=== PATIENT | male | born 1955 | race Caucasian/White ===

== ENCOUNTER 2022-12-14 17:47 | Inpatient (IN) ==
[2022-12-14 18:24] LABS: ABS Lymphocytes 1.1 10^3/ul (1.0-4.8); ABS Monocytes 0.4 10^3/ul (0-0.8); ABS Neutrophils 3.8 10^3/ul (1.5-7.7); Eosinophil % 0.8 %; Hematocrit 55 % (42-52); Hemoglobin 18.7 g/dL (14.0-18.0); Lymphocyte % 20.2 %; Mean Corpuscular HGB Conc 34 g/dL (31-36); Mean Corpuscular Hemoglobin 31 pg (27-31); Mean Corpuscular Volume 92 fL (80-94); Nucleated Red Blood Cells % 0.1; Platelet Count 147 10^3/uL (150-450); Red Blood Count 5.97 10^6 /uL (4.18-5.48); Red Cell Distribution Width 16 % (10-15); White Blood Count 5.4 10^3/uL (3.5-10.8)
[2022-12-14 18:45] LABS: High Sens Troponin Baseline 5 pg/mL (<20)
[2022-12-14 18:45] LABS: Urine Appearance Clear; Urine Bilirubin Negative (Negative); Urine Blood 3+ (Negative); Urine Color Yellow; Urine Glucose Negative (Negative); Urine Ketones Negative (Negative); Urine Nitrite Negative (Negative); Urine Protein 3+(>=500 mg/dL) (Negative); Urine Specific Gravity 1.009 (1.002-1.030); Urine Urobilinogen Negative (Negative)
[2022-12-14 18:57] LABS: Urine Bacteria Absent (Absent); Urine Red Blood Cell 3+(>10/hpf) (Absent); Urine White Blood Cell Trace(0-5/hpf) (Absent)
[2022-12-14 18:59] LABS: ALT 21 U/L (7-52); AST 55 U/L (13-39); Albumin 4.5 g/dL (3.2-5.2); Albumin/Globulin Ratio 1.5 (1-3); Alkaline Phosphatase 48 U/L (35-149); Blood Urea Nitrogen 8 mg/dL (6-24); Calcium 9.8 mg/dL (8.6-10.3); Chloride 76 mmol/L (101-111); Globulin 3.1 g/dL (2-4); Glucose 83 mg/dL (70-100); Potassium 3.2 mmol/L (3.5-5.0); Sodium 121 mmol/L (135-145); Total Protein 7.6 g/dL (6.4-8.9); eGFR CKD-EPI 66.7 (>60)
[2022-12-14 19:20] LABS: Anion Gap 4 mmol/L (2-11); CO2 Carbon Dioxide 41 mmol/L (22-32)
[2022-12-14 20:10] LABS: High Sensitivity Troponin 1 Hr 6 pg/mL (<20)
[2022-12-14 21:46] LABS: PO2 Arterial 102 mmHg (80-100)
[2022-12-14] MEDS ORDERED: Iohexol 350 (CONTRAST) 500 ML MDV IV ONE (21:50)
[2022-12-14 21:51] LABS: PCO2 Arterial 78 mmHg (35-45)
[2022-12-14] MEDS ORDERED: Albuterol/Ipratropium NEB.SOL (2.5/0.5 MG) 3 ML NEB.SOLN INH ONE (21:52)
[2022-12-14] MEDS ORDERED: Furosemide 40 mg/4 ml IV VIAL IV SLOW PU ONE (21:52)
[2022-12-14 22:16] LABS: Free T4 < 0.25 ng/dL (0.61-1.12)
[2022-12-14 22:42] LABS: TSH Ultra Thyroid Stim Horm 77.12 mcIU/mL (0.34-5.60)
[2022-12-14] MEDS ORDERED: Levothyroxine 100 MCG/5 ML VIAL IV SCH ×2 (23:00)
[2022-12-14] MEDS ORDERED: Dexamethasone IV 4 MG/ML VIAL 1 ml VIAL IV SLOW PU ONE (23:01)
[2022-12-14] MEDS ORDERED: Thiamine IV 100 MG/ML VIAL (only for Bannana Bags !) IVPB SCH (23:45)
[2022-12-14] MEDS ORDERED: Zosyn per Pharmacy NOTE FOLLOW UP SCH (23:45)
[2022-12-14] MEDS ORDERED: Levothyroxine 100 MCG/5 ML VIAL IV ONE (23:45)
[2022-12-14] MEDS ORDERED: LORazepam 2 mg VIAL 1 ml IV PUSH SCH (23:45)
[2022-12-14] MEDS ORDERED: Piperacillin/Tazobac ADVAN 3.375 GM in NS 0.9% 100 ml BAG 100 ML IV ONE (23:47)
[2022-12-14] MEDS ORDERED: Albuterol/Ipratropium NEB.SOL (2.5/0.5 MG) 3 ML NEB.SOLN INH PRN (23:48)
[2022-12-15] MEDS ORDERED: Lorazepam PYXIS KEY PRN (00:18)
[2022-12-15] MEDS ORDERED: Thiamine 100 MG/ML 2 ml VIAL (200 mg) IV ONE (00:33)
[2022-12-15 01:15] LABS: PCO2 Arterial 90 mmHg (35-45); PO2 Arterial 111 mmHg (80-100)
[2022-12-15 01:38] LABS: Urine Osmo 244 mOsm/kg (150-1150)
[2022-12-15 02:00] LABS: Albumin 4.1 g/dL (3.2-5.2); Albumin/Globulin Ratio 1.6 (1-3); Creatinine, Serum 1.34 mg/dL (0.67-1.17); Globulin 2.6 g/dL (2-4); Potassium 3.1 mmol/L (3.5-5.0); Total Bilirubin 1.8 mg/dL (0.2-1.0); Total Protein 6.7 g/dL (6.4-8.9); eGFR CKD-EPI 58.4 (>60)
[2022-12-15] MEDS: KCL 20 MEQ/100 ML IVPREMIX 20 MEQ/100 ML BAG IV SCH ×2 (02:08→05:28)
[2022-12-15 02:28] LABS: PO2 Arterial 89 mmHg (80-100)
[2022-12-15 02:30] LABS: PCO2 Arterial 92 mmHg (35-45)
[2022-12-15] MEDS ORDERED: NS 0.9% 500 ml BAG 500 ML IV ONE (03:50)
[2022-12-15] MEDS ORDERED: Succinylcholine 200 mg VIAL 20 mg/ml 10 ml VIAL (200 mg) ONE (03:51)
[2022-12-15] MEDS ORDERED: Norepinephrine 16MCG/ML BAGD5W 4,000 MCG/250 ML BAG IV ONE (03:51)
[2022-12-15] MEDS ORDERED: Rocuronium 50 mg VIAL 10 mg/ml 5 ml VIAL (50 mg) ONE (03:51)
[2022-12-15] MEDS ORDERED: Propofol 10 mg/ml 100 ML BTL 1,000 MG/100 ML BTL ONE (03:52)
[2022-12-15] MEDS: Norepinephrine 16MCG/ML BAGD5W 4,000 MCG/250 ML BAG IV SCH ×3 (03:56→18:34)
[2022-12-15] MEDS ORDERED: Norepinephrine 16MCG/ML BAG NS 4,000 MCG/250 ML BAG IV SCH (04:00)
[2022-12-15] MEDS ORDERED: ZOSYN 3.375 GM Q8H per EXTENDED INFUSION IV SCH ×2 (04:00→07:30)
[2022-12-15] MEDS ORDERED: Norepinephrine 16MCG/ML BAGD5W 4,000 MCG/250 ML BAG IV SCH (04:00)
[2022-12-15] MEDS ORDERED: Propofol 10 mg/ml 100 ML BTL 1,000 MG/100 ML BTL IV SCH (04:00)
[2022-12-15 04:12] LABS: Albumin 3.5 g/dL (3.2-5.2); Albumin/Globulin Ratio 1.5 (1-3); Calcium 7.8 mg/dL (8.6-10.3); Creatinine, Serum 1.22 mg/dL (0.67-1.17); Globulin 2.3 g/dL (2-4); Total Bilirubin 1.5 mg/dL (0.2-1.0); Total Protein 5.8 g/dL (6.4-8.9); eGFR CKD-EPI 65.4 (>60)
[2022-12-15] MEDS ORDERED: Midazolam 50 MG PREMIX IV DRIP 50 ML IV SCH (04:15)
[2022-12-15] MEDS: Propofol 10 mg/ml 100 ML BTL 1,000 MG/100 ML BTL IV SCH ×4 (04:22→20:07)
[2022-12-15] MEDS ORDERED: Midazolam 2 mg/2 ml VIAL 1 mg/ml 2 ml VIAL (2 mg) IV SLOW PU ONE (04:32)
[2022-12-15] MEDS ORDERED: Midazolam 2 mg/2 ml VIAL 1 mg/ml 2 ml VIAL (2 mg) ONE ×2 (04:33→10:55)
[2022-12-15] MEDS: Hydrocortisone INJ 100 MG/2ML 2 ML VIAL IV SCH ×3 (05:30→21:41)
[2022-12-15] MEDS: Chlorhexidine MOUTHWASH 0.12% 15 ML UDC SWISH SPIT SCH ×5 (05:30→21:41)
[2022-12-15] MEDS: Heparin 5000 UNITS/ML 1 mL VIAL SUBCUT SCH ×3 (05:30→21:41)
[2022-12-15 05:55] LABS: PCO2 Arterial 44 mmHg (35-45); PO2 Arterial 74 mmHg (80-100)
[2022-12-15] MEDS ORDERED: Hydrocortisone INJ 100 MG/2ML 2 ML VIAL IV SCH (06:00)
[2022-12-15] MEDS ORDERED: Potassium Chloride LIQUID 20 MEQ/15 ML LIQUID PO ONE (06:22)
[2022-12-15 06:37] LABS: Hematocrit 51 % (42-52); Hemoglobin 17.1 g/dL (14.0-18.0); Mean Corpuscular HGB Conc 34 g/dL (31-36); Mean Corpuscular Hemoglobin 31 pg (27-31); Mean Corpuscular Volume 93 fL (80-94); Mean Platelet Volume 6.9 fL (7.4-10.4); Platelet Count 181 10^3/uL (150-450); Red Blood Count 5.45 10^6 /uL (4.18-5.48); Red Cell Distribution Width 16 % (10-15); White Blood Count 7.4 10^3/uL (3.5-10.8)
[2022-12-15] MEDS ORDERED: ZOSYN 3.375 GM x ONE DOSE over 30 miuntes IV (07:00)
[2022-12-15 07:19] LABS: Albumin 3.9 g/dL (3.2-5.2); Albumin/Globulin Ratio 1.6 (1-3); Calcium 9.1 mg/dL (8.6-10.3); Creatinine, Serum 1.21 mg/dL (0.67-1.17); Globulin 2.5 g/dL (2-4); Phosphorus 3.7 mg/dL (2.5-5.0); Total Bilirubin 2.2 mg/dL (0.2-1.0); Total Protein 6.4 g/dL (6.4-8.9)
[2022-12-15 07:20] LABS: Potassium 5.8 mmol/L (3.5-5.0)
[2022-12-15] MEDS ORDERED: Furosemide 40 mg/4 ml IV VIAL IV ONE (07:22)
[2022-12-15 08:34] LABS: ALT 18 U/L (7-52); Albumin 3.8 g/dL (3.2-5.2); Albumin/Globulin Ratio 1.5 (1-3); Alkaline Phosphatase 37 U/L (35-149); Blood Urea Nitrogen 9 mg/dL (6-24); CO2 Carbon Dioxide 33 mmol/L (22-32); Calcium 8.8 mg/dL (8.6-10.3); Chloride 79 mmol/L (101-111); Creatinine, Serum 1.21 mg/dL (0.67-1.17); Globulin 2.5 g/dL (2-4); Glucose 149 mg/dL (70-100); Total Protein 6.3 g/dL (6.4-8.9)
[2022-12-15] MEDS: Pantoprazole VIAL 40 MG VIAL IV SCH (08:37)
[2022-12-15] MEDS: Multivitamins ADULT w/MIN LIQ 15 ML UDC PO SCH (08:37)
[2022-12-15] MEDS: Levothyroxine 100 MCG/5 ML VIAL IV SCH (08:38)
[2022-12-15] MEDS: Thiamine 100 MG/ML 2 ml VIAL 500 MG in NS 0.9% 250 ml 250 ML IV SCH ×3 (08:56→20:57)
[2022-12-15] MEDS ORDERED: Multivitamins/Minerals TAB PO SCH (09:00)
[2022-12-15 09:14] LABS: Anion Gap 6 mmol/L (2-11); Sodium 118 mmol/L (135-145)
[2022-12-15 10:21] LABS: Potassium Redraw 3.8 mmol/L (3.5-5.0)
[2022-12-15 10:38] LABS: PCO2 Arterial 44 mmHg (35-45); PO2 Arterial 67 mmHg (80-100)
[2022-12-15] MEDS ORDERED: Midazolam 10 mg/10 ml VIAL 1 mg/ml 10 ml VIAL (10 mg) IV SLOW PU ONE (13:05)
[2022-12-15] MEDS ORDERED: Midazolam 10 mg/10 ml VIAL 1 mg/ml 10 ml VIAL (10 mg) IV SLOW PU PRN (13:08)
[2022-12-15] MEDS ORDERED: Midazolam 2 mg/2 ml VIAL 1 mg/ml 2 ml VIAL (2 mg) IV SLOW PU PRN (13:13)
[2022-12-15 13:48] LABS: Osmolality Serum 263 mOsm/kg (275-295)
[2022-12-15] MEDS ORDERED: Sulfur Hexaflouride MICROSPHR 25 MG VIAL ONE (14:49)
[2022-12-15] MEDS: ZOSYN 3.375 GM Q8H per EXTENDED INFUSION IV SCH ×2 (15:12→21:40)
[2022-12-15 15:43] LABS: Calcium 9.6 mg/dL (8.6-10.3); Creatinine, Serum 1.53 mg/dL (0.67-1.17); Potassium 4.2 mmol/L (3.5-5.0); eGFR CKD-EPI 49.8 (>60)
[2022-12-15 18:19] LABS: Calcium 9.3 mg/dL (8.6-10.3); Creatinine, Serum 1.63 mg/dL (0.67-1.17); Potassium 3.8 mmol/L (3.5-5.0); eGFR CKD-EPI 46.2 (>60)
[2022-12-15] MEDS ORDERED: Albumin Human 5% 12.5 GM/250 ML BTL IV ONE (21:15)
[2022-12-15] MEDS ORDERED: Albumin Human 25% 0 GM/0 ML BTL IV ONE (21:31)
[2022-12-15 22:45] LABS: Calcium 8.6 mg/dL (8.6-10.3); Creatinine, Serum 1.53 mg/dL (0.67-1.17); Potassium 3.3 mmol/L (3.5-5.0); eGFR CKD-EPI 49.8 (>60)
[2022-12-16] MEDS ORDERED: KCL 20 MEQ/100 ML IVPREMIX 20 MEQ/100 ML BAG IV ONE (00:01)
[2022-12-16] MEDS: Propofol 10 mg/ml 100 ML BTL 1,000 MG/100 ML BTL IV SCH ×5 (01:47→22:14)
[2022-12-16] MEDS: Chlorhexidine MOUTHWASH 0.12% 15 ML UDC SWISH SPIT SCH ×6 (01:48→22:00)
[2022-12-16 03:22] LABS: Creatinine, Serum 1.65 mg/dL (0.67-1.17); Potassium 3.5 mmol/L (3.5-5.0)
[2022-12-16 03:23] LABS: Calcium 8.6 mg/dL (8.6-10.3); eGFR CKD-EPI 45.5 (>60)
[2022-12-16] MEDS: Hydrocortisone INJ 100 MG/2ML 2 ML VIAL IV SCH ×3 (05:35→22:00)
[2022-12-16] MEDS: Heparin 5000 UNITS/ML 1 mL VIAL SUBCUT SCH ×3 (05:36→22:00)
[2022-12-16 05:40] LABS: ABS Lymphocytes 1.2 10^3/ul (1.0-4.8); ABS Monocytes 0.5 10^3/ul (0-0.8); ABS Neutrophils 9.4 10^3/ul (1.5-7.7); Hematocrit 48 % (42-52); Hemoglobin 16.1 g/dL (14.0-18.0); Lymphocyte % 10.4 %; Mean Corpuscular HGB Conc 34 g/dL (31-36); Mean Corpuscular Hemoglobin 31 pg (27-31); Mean Corpuscular Volume 92 fL (80-94); Mean Platelet Volume 7.3 fL (7.4-10.4); Platelet Count 170 10^3/uL (150-450); Red Blood Count 5.19 10^6 /uL (4.18-5.48); Red Cell Distribution Width 16 % (10-15); White Blood Count 11.2 10^3/uL (3.5-10.8)
[2022-12-16] MEDS: Levothyroxine 100 MCG/5 ML VIAL IV SCH (05:41)
[2022-12-16] MEDS: ZOSYN 3.375 GM Q8H per EXTENDED INFUSION IV SCH ×3 (05:43→22:02)
[2022-12-16 06:23] LABS: Calcium 9.2 mg/dL (8.6-10.3); Creatinine, Serum 1.75 mg/dL (0.67-1.17); Magnesium 1.9 mg/dL (1.9-2.7); Potassium 3.5 mmol/L (3.5-5.0); eGFR CKD-EPI 42.4 (>60)
[2022-12-16 06:39] LABS: TSH Ultra Thyroid Stim Horm 32.67 mcIU/mL (0.34-5.60)
[2022-12-16 06:41] LABS: Free T4 0.3 ng/dL (0.61-1.12)
[2022-12-16] MEDS ORDERED: Magnesium Sulfate 2 gm BAG 2 GM/50 ML BAG IVPB ONE (07:08)
[2022-12-16] MEDS ORDERED: fentaNYL 100 mcg/2 ml 50 MCG/ML VIAL ONE (08:06)
[2022-12-16] MEDS: fentaNYL 100 mcg/2 ml 50 MCG/ML VIAL IV SLOW PU PRN ×3 (08:15→16:52)
[2022-12-16] MEDS: Multivitamins ADULT w/MIN LIQ 15 ML UDC PO SCH (08:34)
[2022-12-16] MEDS: Pantoprazole VIAL 40 MG VIAL IV SCH (08:34)
[2022-12-16] MEDS: Thiamine 100 MG/ML 2 ml VIAL 500 MG in NS 0.9% 250 ml 250 ML IV SCH ×3 (08:36→20:13)
[2022-12-16] MEDS: Budesonide NEB 0.5 MG/2 ML NEB.SOLN INH SCH ×2 (08:48→18:53)
[2022-12-16] MEDS: Albuterol/Ipratropium NEB.SOL (2.5/0.5 MG) 3 ML NEB.SOLN INH PRN ×2 (08:49→18:54)
[2022-12-16] MEDS: Norepinephrine 16MCG/ML BAGD5W 4,000 MCG/250 ML BAG IV SCH (09:27)
[2022-12-16] MEDS ORDERED: fentaNYL 100 mcg/2 ml 50 MCG/ML VIAL IV SLOW PU ONE (16:24)
[2022-12-16 16:42] LABS: PCO2 Arterial 40 mmHg (35-45); PO2 Arterial 102 mmHg (80-100)
[2022-12-16] MEDS: fentaNYL INFUSION 50 mcg/mL VL 2,500 MCG/50 ML VIAL IV SCH (16:57)
[2022-12-17] MEDS: Chlorhexidine MOUTHWASH 0.12% 15 ML UDC SWISH SPIT SCH ×6 (02:03→21:25)
[2022-12-17] MEDS: Propofol 10 mg/ml 100 ML BTL 1,000 MG/100 ML BTL IV SCH ×5 (04:04→23:17)
[2022-12-17] MEDS: Heparin 5000 UNITS/ML 1 mL VIAL SUBCUT SCH ×3 (05:00→21:25)
[2022-12-17] MEDS: Hydrocortisone INJ 100 MG/2ML 2 ML VIAL IV SCH ×3 (05:00→19:52)
[2022-12-17] MEDS: Levothyroxine 100 MCG/5 ML VIAL IV SCH (05:01)
[2022-12-17 05:16] LABS: ABS Lymphocytes 1.2 10^3/ul (1.0-4.8); ABS Monocytes 0.6 10^3/ul (0-0.8); ABS Neutrophils 8.2 10^3/ul (1.5-7.7); Eosinophil % 0.1 %; Hematocrit 47 % (42-52); Hemoglobin 15.4 g/dL (14.0-18.0); Lymphocyte % 12.1 %; Mean Corpuscular HGB Conc 33 g/dL (31-36); Mean Corpuscular Hemoglobin 31 pg (27-31); Mean Corpuscular Volume 93 fL (80-94); Mean Platelet Volume 7.4 fL (7.4-10.4); Nucleated Red Blood Cells % 0.1; Platelet Count 165 10^3/uL (150-450); Red Blood Count 5.05 10^6 /uL (4.18-5.48); Red Cell Distribution Width 16 % (10-15); White Blood Count 10.1 10^3/uL (3.5-10.8)
[2022-12-17] MEDS: ZOSYN 3.375 GM Q8H per EXTENDED INFUSION IV SCH ×3 (05:39→21:26)
[2022-12-17 06:17] LABS: Calcium 9.1 mg/dL (8.6-10.3); Creatinine, Serum 1.55 mg/dL (0.67-1.17); Magnesium 2.5 mg/dL (1.9-2.7); Potassium 3.3 mmol/L (3.5-5.0); eGFR CKD-EPI 49.1 (>60)
[2022-12-17 06:32] LABS: TSH Ultra Thyroid Stim Horm 29.17 mcIU/mL (0.34-5.60)
[2022-12-17 06:34] LABS: Free T3 2.4 pg/mL (2.5-3.9); Free T4 0.38 ng/dL (0.61-1.12)
[2022-12-17] MEDS: KCL 20 MEQ/100 ML IVPREMIX 20 MEQ/100 ML BAG IV SCH ×2 (06:41→07:49)
[2022-12-17] MEDS ORDERED: KCL 20 MEQ/100 ML IVPREMIX 20 MEQ/100 ML BAG IV SCH (07:00)
[2022-12-17] MEDS: Budesonide NEB 0.5 MG/2 ML NEB.SOLN INH SCH ×2 (07:46→19:27)
[2022-12-17] MEDS: Multivitamins ADULT w/MIN LIQ 15 ML UDC PO SCH (07:49)
[2022-12-17] MEDS: Pantoprazole VIAL 40 MG VIAL IV SCH (07:49)
[2022-12-17] MEDS: fentaNYL 100 mcg/2 ml 50 MCG/ML VIAL IV SLOW PU PRN ×2 (07:49→22:48)
[2022-12-17] MEDS: Thiamine 100 MG/ML 2 ml VIAL 500 MG in NS 0.9% 250 ml 250 ML IV SCH ×3 (07:53→19:52)
[2022-12-17] MEDS: Norepinephrine 16MCG/ML BAGD5W 4,000 MCG/250 ML BAG IV SCH (09:03)
[2022-12-17 14:34] LABS: Blood Urea Nitrogen 13 mg/dL (6-24); CO2 Carbon Dioxide 36 mmol/L (22-32); Calcium 8.8 mg/dL (8.6-10.3); Chloride 91 mmol/L (101-111); Glucose 106 mg/dL (70-100); Sodium 129 mmol/L (135-145); eGFR CKD-EPI 55.4 (>60)
[2022-12-17 14:46] LABS: Anion Gap 2 mmol/L (2-11)
[2022-12-17] MEDS ORDERED: Potassium Chloride LIQUID 20 MEQ/15 ML LIQUID PEG TUBE ONE (17:29)
[2022-12-17] MEDS: fentaNYL INFUSION 50 mcg/mL VL 2,500 MCG/50 ML VIAL IV SCH (23:18)
[2022-12-18] MEDS: Albuterol/Ipratropium NEB.SOL (2.5/0.5 MG) 3 ML NEB.SOLN INH PRN ×3 (00:11→07:07)
[2022-12-18] MEDS: Acetylcysteine INHALATION SOL 200 MG/ML NEB.SOLN 10 ML INH SCH ×3 (00:12→07:07)
[2022-12-18] MEDS: Chlorhexidine MOUTHWASH 0.12% 15 ML UDC SWISH SPIT SCH ×3 (02:19→09:23)
[2022-12-18] MEDS: Propofol 10 mg/ml 100 ML BTL 1,000 MG/100 ML BTL IV SCH ×2 (02:22→07:37)
[2022-12-18 04:37] LABS: ABS Lymphocytes 1.4 10^3/ul (1.0-4.8); ABS Monocytes 0.6 10^3/ul (0-0.8); ABS Neutrophils 8.1 10^3/ul (1.5-7.7); Eosinophil % 0.1 %; Hematocrit 44 % (42-52); Hemoglobin 14.6 g/dL (14.0-18.0); Lymphocyte % 14.2 %; Mean Corpuscular HGB Conc 33 g/dL (31-36); Mean Corpuscular Hemoglobin 31 pg (27-31); Mean Corpuscular Volume 93 fL (80-94); Mean Platelet Volume 7.2 fL (7.4-10.4); Nucleated Red Blood Cells % 0.1; Platelet Count 137 10^3/uL (150-450); Red Cell Distribution Width 17 % (10-15); White Blood Count 10.1 10^3/uL (3.5-10.8)
[2022-12-18 05:20] LABS: Calcium 9.2 mg/dL (8.6-10.3); Creatinine, Serum 1.42 mg/dL (0.67-1.17); Magnesium 2.4 mg/dL (1.9-2.7); Potassium 3.4 mmol/L (3.5-5.0); eGFR CKD-EPI 54.5 (>60)
[2022-12-18 05:37] LABS: TSH Ultra Thyroid Stim Horm 24.36 mcIU/mL (0.34-5.60)
[2022-12-18 05:38] LABS: Free T3 2.2 pg/mL (2.5-3.9)
[2022-12-18 05:39] LABS: Free T4 0.35 ng/dL (0.61-1.12)
[2022-12-18] MEDS: ZOSYN 3.375 GM Q8H per EXTENDED INFUSION IV SCH ×3 (06:38→21:27)
[2022-12-18] MEDS: Levothyroxine 100 MCG/5 ML VIAL IV SCH (06:39)
[2022-12-18] MEDS: Heparin 5000 UNITS/ML 1 mL VIAL SUBCUT SCH ×3 (06:39→21:31)
[2022-12-18] MEDS: Budesonide NEB 0.5 MG/2 ML NEB.SOLN INH SCH (07:07)
[2022-12-18] MEDS: Multivitamins ADULT w/MIN LIQ 15 ML UDC PO SCH (07:38)
[2022-12-18] MEDS: Hydrocortisone INJ 100 MG/2ML 2 ML VIAL IV SCH (07:39)
[2022-12-18] MEDS: Thiamine 100 MG/ML 2 ml VIAL 500 MG in NS 0.9% 250 ml 250 ML IV SCH ×3 (07:41→21:30)
[2022-12-18] MEDS: Pantoprazole VIAL 40 MG VIAL IV SCH (07:41)
[2022-12-18] MEDS ORDERED: Acetylcysteine INH SOL (RT) 200 MG/ML 4 ML VIAL INH PRN (09:16)
[2022-12-18] MEDS ORDERED: Potassium Chlor 20 meq TAB.ER PO ONE (11:44)
[2022-12-18] MEDS ORDERED: KCL 20 MEQ/100 ML IVPREMIX 20 MEQ/100 ML BAG IV ONE (11:44)
[2022-12-18 12:59] LABS: HDL Cholesterol 88.6 mg/dL
[2022-12-18] MEDS ORDERED: Acetylcysteine INHALATION SOL 200 MG/ML NEB.SOLN 10 ML INH SCH (19:00)
[2022-12-18] MEDS: Mometasone/Formoter 100/5 MDI INH SCH (20:55)
[2022-12-18] MEDS ORDERED: Dextrose 50% Syringe 50 ml 25 GM/50 ML SYRINGE IV PUSH PRN (23:38)
[2022-12-19 03:50] LABS: ABS Lymphocytes 1.3 10^3/ul (1.0-4.8); ABS Monocytes 0.5 10^3/ul (0-0.8); ABS Neutrophils 5.6 10^3/ul (1.5-7.7); Eosinophil % 0.3 %; Hematocrit 43 % (42-52); Hemoglobin 13.8 g/dL (14.0-18.0); Lymphocyte % 17.3 %; Mean Corpuscular HGB Conc 32 g/dL (31-36); Mean Corpuscular Hemoglobin 30 pg (27-31); Mean Corpuscular Volume 94 fL (80-94); Mean Platelet Volume 7.2 fL (7.4-10.4); Platelet Count 119 10^3/uL (150-450); Red Blood Count 4.54 10^6 /uL (4.18-5.48); Red Cell Distribution Width 17 % (10-15); White Blood Count 7.3 10^3/uL (3.5-10.8)
[2022-12-19 04:21] LABS: Creatinine, Serum 1.41 mg/dL (0.67-1.17); Potassium 3.8 mmol/L (3.5-5.0)
[2022-12-19] MEDS: Heparin 5000 UNITS/ML 1 mL VIAL SUBCUT SCH ×3 (05:18→22:04)
[2022-12-19] MEDS: ZOSYN 3.375 GM Q8H per EXTENDED INFUSION IV SCH (05:24)
[2022-12-19 08:39] LABS: Magnesium 2.5 mg/dL (1.9-2.7)
[2022-12-19] MEDS: Mometasone/Formoter 100/5 MDI INH SCH ×2 (08:40→19:04)
[2022-12-19] MEDS ORDERED: Potassium Chlor 20 meq TAB.ER PO SCH (09:00)
[2022-12-19] MEDS ORDERED: Hydrocortisone INJ 100 MG/2ML 2 ML VIAL IV SCH (09:00)
[2022-12-19] MEDS: Multivitamins/Minerals TAB PO SCH (09:49)
[2022-12-20 03:39] LABS: Hematocrit 42 % (42-52); Hemoglobin 13.9 g/dL (14.0-18.0); Mean Corpuscular HGB Conc 33 g/dL (31-36); Mean Corpuscular Hemoglobin 31 pg (27-31); Mean Corpuscular Volume 95 fL (80-94); Platelet Count 123 10^3/uL (150-450); Red Blood Count 4.47 10^6 /uL (4.18-5.48); Red Cell Distribution Width 17 % (10-15); White Blood Count 7.2 10^3/uL (3.5-10.8)
[2022-12-20 04:19] LABS: Calcium 9.2 mg/dL (8.6-10.3); Creatinine, Serum 1.23 mg/dL (0.67-1.17); Magnesium 2.5 mg/dL (1.9-2.7); Potassium 4.1 mmol/L (3.5-5.0); eGFR CKD-EPI 64.7 (>60)
[2022-12-20] MEDS: Heparin 5000 UNITS/ML 1 mL VIAL SUBCUT SCH ×3 (05:09→20:14)
[2022-12-20] MEDS: Mometasone/Formoter 100/5 MDI INH SCH ×2 (07:39→19:45)
[2022-12-20] MEDS: Hydrocortisone INJ 100 MG/2ML 2 ML VIAL IV SCH (09:44)
[2022-12-20] MEDS: Multivitamins/Minerals TAB PO SCH (09:44)
[2022-12-21] MEDS: Heparin 5000 UNITS/ML 1 mL VIAL SUBCUT SCH ×3 (05:15→21:01)
[2022-12-21 05:45] LABS: PCO2 Arterial 62 mmHg (35-45); PO2 Arterial 60 mmHg (80-100)
[2022-12-21] MEDS: Mometasone/Formoter 100/5 MDI INH SCH ×2 (07:28→19:54)
[2022-12-21] MEDS: Multivitamins/Minerals TAB PO SCH (09:51)
[2022-12-21] MEDS: Hydrocortisone INJ 100 MG/2ML 2 ML VIAL IV SCH (09:52)
[2022-12-21 10:26] LABS: CO2 Carbon Dioxide 37 mmol/L (22-32); Calcium 9.4 mg/dL (8.6-10.3); Chloride 98 mmol/L (101-111); Sodium 136 mmol/L (135-145)
[2022-12-21 10:30] LABS: Anion Gap 1 mmol/L (2-11)
[2022-12-21 10:31] LABS: Blood Urea Nitrogen 17 mg/dL (6-24); Creatinine, Serum 1.14 mg/dL (0.67-1.17); Glucose 82 mg/dL (70-100); eGFR CKD-EPI 70.9 (>60)
[2022-12-21 10:38] LABS: ABS Eosinophils 0.1 10^3/ul (0-0.6); ABS Lymphocytes 1.2 10^3/ul (1.0-4.8); ABS Monocytes 0.5 10^3/ul (0-0.8); ABS Neutrophils 4.3 10^3/ul (1.5-7.7); Eosinophil % 0.9 %; Hematocrit 43 % (42-52); Hemoglobin 14.1 g/dL (14.0-18.0); Lymphocyte % 20.5 %; Mean Corpuscular HGB Conc 33 g/dL (31-36); Mean Corpuscular Hemoglobin 31 pg (27-31); Mean Corpuscular Volume 96 fL (80-94); Mean Platelet Volume 7.2 fL (7.4-10.4); Platelet Count 136 10^3/uL (150-450); Red Blood Count 4.51 10^6 /uL (4.18-5.48); Red Cell Distribution Width 17 % (10-15); White Blood Count 6.1 10^3/uL (3.5-10.8)
[2022-12-21 11:26] LABS: Potassium Redraw 3.8 mmol/L (3.5-5.0)
[2022-12-21] MEDS ORDERED: Furosemide 20 mg/2 ml IV VIAL IV ONE (11:48)
[2022-12-21 12:04] LABS: T4, Total 3.66 mcg/dL (6.09-12.23)
[2022-12-21 13:59] LABS: TSH Ultra Thyroid Stim Horm 47.96 mcIU/mL (0.34-5.60)
[2022-12-22] MEDS: Heparin 5000 UNITS/ML 1 mL VIAL SUBCUT SCH ×3 (05:11→22:26)
[2022-12-22 05:41] LABS: ABS Lymphocytes 1.4 10^3/ul (1.0-4.8); ABS Monocytes 0.4 10^3/ul (0-0.8); ABS Neutrophils 3.7 10^3/ul (1.5-7.7); Eosinophil % 0.8 %; Hematocrit 43 % (42-52); Lymphocyte % 25.4 %; Mean Corpuscular HGB Conc 33 g/dL (31-36); Mean Corpuscular Hemoglobin 31 pg (27-31); Mean Corpuscular Volume 96 fL (80-94); Mean Platelet Volume 7.1 fL (7.4-10.4); Nucleated Red Blood Cells % 0.1; Platelet Count 156 10^3/uL (150-450); Red Blood Count 4.49 10^6 /uL (4.18-5.48); Red Cell Distribution Width 17 % (10-15); White Blood Count 5.6 10^3/uL (3.5-10.8)
[2022-12-22 06:30] LABS: Albumin 3.8 g/dL (3.2-5.2); Albumin/Globulin Ratio 1.5 (1-3); Calcium 9.2 mg/dL (8.6-10.3); Creatinine, Serum 1.12 mg/dL (0.67-1.17); Globulin 2.5 g/dL (2-4); Magnesium 2.4 mg/dL (1.9-2.7); Potassium 3.5 mmol/L (3.5-5.0); Total Bilirubin 1.6 mg/dL (0.2-1.0); Total Protein 6.3 g/dL (6.4-8.9); eGFR CKD-EPI 72.5 (>60)
[2022-12-22 06:43] LABS: Free T3 1.7 pg/mL (2.5-3.9)
[2022-12-22 06:44] LABS: Free T4 0.55 ng/dL (0.61-1.12)
[2022-12-22] MEDS: Mometasone/Formoter 100/5 MDI INH SCH ×2 (07:17→21:12)
[2022-12-22] MEDS ORDERED: Potassium Chlor 20 meq TAB.ER PO ONE (07:18)
[2022-12-22] MEDS: Multivitamins/Minerals TAB PO SCH (09:32)
[2022-12-22] MEDS ORDERED: Furosemide 40 mg/4 ml IV VIAL IV ONE (10:43)
[2022-12-22 12:07] LABS: TSH Ultra Thyroid Stim Horm 53.14 mcIU/mL (0.34-5.60)
[2022-12-23] MEDS: Heparin 5000 UNITS/ML 1 mL VIAL SUBCUT SCH ×3 (06:39→22:10)
[2022-12-23 07:28] LABS: ABS Eosinophils 0.1 10^3/ul (0-0.6); ABS Lymphocytes 1.3 10^3/ul (1.0-4.8); ABS Monocytes 0.5 10^3/ul (0-0.8); ABS Neutrophils 3.4 10^3/ul (1.5-7.7); Eosinophil % 1.1 %; Hematocrit 44 % (42-52); Hemoglobin 14.6 g/dL (14.0-18.0); Lymphocyte % 24.8 %; Mean Corpuscular HGB Conc 33 g/dL (31-36); Mean Corpuscular Hemoglobin 32 pg (27-31); Mean Corpuscular Volume 97 fL (80-94); Mean Platelet Volume 7.3 fL (7.4-10.4); Platelet Count 180 10^3/uL (150-450); Red Blood Count 4.56 10^6 /uL (4.18-5.48); Red Cell Distribution Width 16 % (10-15); White Blood Count 5.4 10^3/uL (3.5-10.8)
[2022-12-23 07:46] LABS: Calcium 9.4 mg/dL (8.6-10.3); Creatinine, Serum 1.17 mg/dL (0.67-1.17); Potassium 3.9 mmol/L (3.5-5.0); eGFR CKD-EPI 68.8 (>60)
[2022-12-23] MEDS: Mometasone/Formoter 100/5 MDI INH SCH ×2 (07:49→19:28)
[2022-12-23] MEDS: Multivitamins/Minerals TAB PO SCH (09:23)
[2022-12-23] MEDS ORDERED: Furosemide 20 mg/2 ml IV VIAL IV ONE (13:40)
[2022-12-24] MEDS: Heparin 5000 UNITS/ML 1 mL VIAL SUBCUT SCH (05:53)
[2022-12-24 06:57] LABS: ABS Eosinophils 0.1 10^3/ul (0-0.6); ABS Lymphocytes 1.4 10^3/ul (1.0-4.8); ABS Monocytes 0.6 10^3/ul (0-0.8); ABS Neutrophils 3.1 10^3/ul (1.5-7.7); Eosinophil % 1.1 %; Hematocrit 42 % (42-52); Hemoglobin 13.8 g/dL (14.0-18.0); Lymphocyte % 27.7 %; Mean Corpuscular HGB Conc 33 g/dL (31-36); Mean Corpuscular Hemoglobin 31 pg (27-31); Mean Corpuscular Volume 95 fL (80-94); Mean Platelet Volume 7.3 fL (7.4-10.4); Nucleated Red Blood Cells % 0.1; Platelet Count 185 10^3/uL (150-450); Red Cell Distribution Width 17 % (10-15); White Blood Count 5.2 10^3/uL (3.5-10.8)
[2022-12-24 07:12] LABS: Calcium 9.3 mg/dL (8.6-10.3); Creatinine, Serum 1.01 mg/dL (0.67-1.17); Potassium 3.7 mmol/L (3.5-5.0)
[2022-12-24] MEDS: Mometasone/Formoter 100/5 MDI INH SCH ×2 (07:51→19:32)
[2022-12-24] MEDS ORDERED: Enoxaparin 40 MG/0.4 ML SYR SUBCUT SCH (09:00)
[2022-12-24] MEDS: Multivitamins/Minerals TAB PO SCH (09:19)
[2022-12-24 14:16] VITALS: BP 114/74
== END 2022-12-24 16:50 | disposition home or self-care (01) | DRG 80 ==
LOC: ED 17:47 → SUATTDRO 23:29 → EDHOLD 23:29 → ICU 12-15 01:56 → MED 12-19 08:13
PROVIDERS: ADMIT Internal Medicine; ATTEND Student in an Organized Health Care Education/Training Program